=== PATIENT | female | born 1955 | race Caucasian/White ===

== ENCOUNTER 2017-07-28 09:47 | Outpatient (CLI) | payer OTHER | END 2017-07-28 09:48 | disposition home or self-care (01) | LOC: LAB 09:47 | PROVIDERS: ATTEND Internal Medicine | DX: E87.5 Hyperkalemia (principal) | CPT/HCPCS: 36415; 84132 ==

== ENCOUNTER 2017-10-08 09:46 | Outpatient (CLI) | payer OTHER ==
[~2017-10-08 09:46] MED LIST: GADOBUTROL 10 MMOL/10 ML VIAL ONE
[2017-10-08] MEDS ORDERED: GADOBUTROL 10 MMOL/10 ML VIAL IVP ONE (10:37)
--- NOTE | 2017-10-08 15:42 | MRI Report ---
EXAM: MRI BRAIN WITHOUT AND WITH CONTRAST EXAM DATE: 10/08/2017 10:44 AM. CLINICAL HISTORY: Lung cancer staging. History of brain metastasis and previous surgical resection. COMPARISON: 03/19/2017. TECHNIQUE: Multiplanar, multisequence T1-weighted and fluid-sensitive MR sequences of the brain were performed. Sequences optimized for routine evaluation. Other: None. IV Contrast: Without and with 10 mL Gadavist. FINDINGS: Again seen are findings of prior surgery for metastasis treatment. There is a small amount of gliosis and/or edema adjacent to the posteromedial right occipital lobe resection defect beneath the craniot al. At the anterior margin of the surgical site there is slightly more prominent amorphous nodular e nhancement. This is nonspecific and may represent treatment change versus residual/recurrent tumor. I n the white matter adjacent to this region there is increased T2 hyperintensity, for example on axial images 15 and 16 from series 701. No other evidence for new or enlarging intracranial enhancing or space occupying mass or a nodule. No acute hemorrhage, stroke or hydrocephalus. No additional white matter disease. Chronic inferior left maxillary retention cyst. The major arterial skull base flow voids are present. IMPRESSION: 1.Again seen are findings of surgery for tumor resection, at the anterior margin of the small resecti on defect there is increased minimal amorphous enhancement and T2 hyperintensity, tumor treatment ben nge versus disease progression/recurrence, additional follow-up suggested. 2. No other evidence for new or enlarging intracranial enhancing or space-occupying mass. [facility] Referring Provider Line: [phone] SITE ID: [id number]
== END 2017-10-08 09:47 | disposition home or self-care (01) ==
LOC: DI 09:46
PROVIDERS: ATTEND Specialist
DX: C79.31 Secondary malignant neoplasm of brain (principal); Z85.118 Personal history of other malignant neoplasm of bronchus and lung
CPT/HCPCS: 70553; A9585

== ENCOUNTER 2018-04-04 12:08 | Outpatient (CLI) | payer OTHER ==
[2018-04-04] MEDS ORDERED: GADOBUTROL 10 MMOL/10 ML VIAL IVP ONE (13:57)
--- NOTE | 2018-04-05 23:58 | MRI Report ---
EXAM: MRI BRAIN WITHOUT AND WITH CONTRAST EXAM DATE: 04/04/2018 02:57 PM. CLINICAL HISTORY: History of lung cancer with brain metastasis posttreatment, craniotomy. COMPARISON: Accompanying MRI cervical and thoracic spine. Prior MRI brain studies 10/08/2017, 017, 09/30/2016. TECHNIQUE: Multiplanar, multisequence T1-weighted and fluid-sensitive MR sequences of the brain were performed. Sequences optimized for routine evaluation. Other: None. IV Contrast: 10 cc Gadavist. Findings: Relevant images are indicated (image number, series number). Compared with MRI brain 10/08/2017: No interval acute or subacute ischemic change of the brain. No significant hemosiderin deposition in the brain. Postcontrast imaging demonstrates new linear enhancement abutting the right parieto-occipi gunnar sulcus (89, 401; 66, 402), measures 1.3 cm in length AP oblique, 0.4 cm in thickness sagittally, 9.1 mm transverse. This appears new in the interval. No other suspicious enhancing lesions in the bra in, meninges are seen. Small encephalomalacia, gliosis present right occipital lobe. Superimposed minimal scattered perivent ricular, subcortical white matter disease. There is partial empty sella. Midbrain negative. Craniocervical junction, limited evaluation upper ce rvical cord negative. Impressions: 1. No acute or subacute ischemic change. 2. New small linear enhancement abutting right parietal occipital sulcus treatment site as detailed, may represent interval scar formation although recurrent tumor not excluded, continue short interval follow-up imaging within 3 months to assess stability. Remaining brain demonstrates no suspicious enh ancement and is unremarkable as detailed. [facility] Referring Provider Line: [phone] SITE ID: [id number]
== END 2018-04-04 12:09 | disposition home or self-care (01) ==
LOC: DI 12:08
PROVIDERS: ATTEND Specialist
DX: C79.31 Secondary malignant neoplasm of brain (principal); Z85.118 Personal history of other malignant neoplasm of bronchus and lung
CPT/HCPCS: 70553

== ENCOUNTER 2018-04-06 06:51 | Day surgery (SDC) | payer OTHER ==
[2018-04-06] MEDS ORDERED: LACTATED RINGERS 1,000 ML IV ONE (07:43)
[2018-04-06] MEDS ORDERED: fentaNYL 250 MCG/5 ML VIAL IVP ONE (08:26)
[2018-04-06] MEDS ORDERED: MIDAZOLAM 2 MG/2 ML VIAL IVP ONE (08:26)
[2018-04-06 09:09] VITALS: BP 107/40
== END 2018-04-06 06:52 | disposition home or self-care (01) ==
LOC: SDS 06:51
PROVIDERS: ATTEND Surgery
PROC: 0DBK8ZX Excision of Ascending Colon, Via Natural or Artificial Opening Endoscopic, Diagnostic (ICD-10-PCS; principal; 2018-04-06 08:15)
DX: Z12.11 Encounter for screening for malignant neoplasm of colon (principal); D12.6 Benign neoplasm of colon, unspecified; K62.1 Rectal polyp; K64.8 Other hemorrhoids; Z86.010 Personal history of colon polyps; I10 Essential (primary) hypertension; E78.00 Pure hypercholesterolemia, unspecified
CPT/HCPCS: 45385; J3010; J7120; 88305

== ENCOUNTER 2018-07-28 16:26 | Outpatient (CLI) | payer OTHER ==
[2018-07-28] MEDS ORDERED: GADOBUTROL 10 MMOL/10 ML VIAL ONE (16:30)
[2018-07-28] MEDS ORDERED: GADOBUTROL 10 MMOL/10 ML VIAL IVP ONE (17:07)
--- NOTE | 2018-07-29 10:03 | MRI Report ---
Reason: SECONDARY MALIGNANY NEOPLASM OF BRAIN Procedure Date: 07/28/2018 Accession Number: [id number] / [id number] Procedure: MRI - Brain W/WO CPT Code: FULL RESULT: EXAM: MRI BRAIN WITHOUT AND WITH CONTRAST EXAM DATE: 07/28/2018 05:15 PM. CLINICAL HISTORY: 62-year-old female with history of lung cancer with brain metastases. Most immediate prior study from 04/04/2018 has demonstrated linear enhancement abutting the right parieto-occipital sulcus. COMPARISON: MR brain 04/04/2018 TECHNIQUE: Multiplanar, multisequence T1-weighted and fluid-sensitive MR sequences of the brain were performed. Sequences optimized for routine evaluation. Other: None. IV Contrast: 10 ML Gadavist. FINDINGS: Brain Volume: Normal for age. Parenchyma: The patient is again noted to be status post prior right parietal craniotomy and resection of the right parieto-occipital enhancing mass. Redemonstration of linear enhancement extending from the posterior right falx into the right parieto-occipital sulcus (series 1002 image 68, series 1001 image 78, decreased in thickness since the prior study. No new intracranial enhancement and no other abnormal intracranial enhancement suggestive of metastatic disease. Redemonstration right frontal development of venous anomaly. Redemonstration of posterior right parieto-occipital FLAIR signal abnormality which likely represents gliosis, similar to prior study (for example series 701 images 16 and 17). Scattered T2/FLAIR hyperintense subcortical, deep, and periventricular white matter lesions within cerebral hemispheres bilaterally. No evidence of acute intracranial hemorrhage. No evidence of acute or subacute infarct. No parenchymal foci susceptibility artifact. Ventricles/Cisterns: No hydrocephalus. No abnormal extra-axial fluid collection or hemorrhage. Orbits: Symmetric and unremarkable. Sella Turcica: The pituitary gland, cavernous sinuses, suprasellar cistern and optic chiasm are unremarkable. IAC: Symmetric and unremarkable. Vasculature: Normal signal flow void is seen in the major arterial structures at the skull base. The dural sinuses are patent and enhance normally. Sinuses: Mucus retention cyst/polyp left maxillary sinus. The remaining paranasal sinuses are clear. Bones: No focal pathologic appearing marrow signal changes. Other: None. IMPRESSION: 1. Compared to the prior MRI brain from 04/04/2018, redemonstration linear enhancement extending from the posterior right falx into the right parieto-occipital sulcus (series 1002 image 68, series 1001 image 78), decreased in thickness since the prior study. Given this, this is favored to represent evolving post-treatment change, although possibility of metastasis, including leptomeningeal metastasis given sulcal location, not entirely excluded. Continued surveillance recommended. 2. No new intracranial enhancement and no other abnormal intracranial enhancement suggestive of metastatic disease. Redemonstration right frontal development of venous anomaly. 3. Redemonstration of posterior right parieto-occipital FLAIR signal abnormality which likely represents gliosis, similar to prior study (for example series 701 images 16 and 17). 4. Scattered T2/FLAIR hyperintense subcortical, deep, and periventricular white matter lesions within cerebral hemispheres bilaterally. These are nonspecific, may represent sequela of chronic microangiopathy. [facility]
== END 2018-07-28 16:27 | disposition home or self-care (01) ==
LOC: DI 16:26
PROVIDERS: ATTEND Specialist
DX: C79.31 Secondary malignant neoplasm of brain (principal); Z85.118 Personal history of other malignant neoplasm of bronchus and lung
CPT/HCPCS: 70553; A9585

== ENCOUNTER 2019-02-08 08:53 | Outpatient (CLI) | payer OTHER ==
[2019-02-08] MEDS ORDERED: GADOBUTROL 10 MMOL/10 ML VIAL ONE (11:04)
[2019-02-08] MEDS ORDERED: GADOBUTROL 10 MMOL/10 ML VIAL IVP ONE (11:21)
--- NOTE | 2019-02-08 15:32 | MRI Report ---
Reason: SECONDARY MALIGNANT NEOPLASM OF BRAIN Procedure Date: 02/08/2019 Accession Number: [id number] / [id number] Procedure: MRI - Brain W/WO CPT Code: FULL RESULT: EXAM: MRI BRAIN WITHOUT AND WITH CONTRAST EXAM DATE: 02/08/2019 11:27 AM. CLINICAL HISTORY: Secondary malignant neoplasm of brain. Follow up lung cancer with brain metastases. Brain surgery 2017. COMPARISON: BRAIN W/WO 07/28/2018 4:27 PM BRAIN W/WO 09/30/2016 7:53 AM BRAIN W/WO 04/04/2018 12:45 PM. TECHNIQUE: Multiplanar, multisequence T1-weighted and fluid-sensitive MR sequences of the brain were performed. Sequences optimized for routine evaluation. Other: None. IV Contrast: 9.5 cc Gadavist. FINDINGS: Brain Volume: Normal for age. Parenchyma: Postoperative change is once again seen posteromedially at the junction of the occipital and inferior parietal lobes. There is progression of linear and lobular foci of parenchymal enhancement seen in the surgical bed. This involves the superior occipital lobe below the parieto-occipital fissure. Punctate focus of adjacent involvement of inferior parietal lobe above the level of the parieto-occipital fissure is likely present as well. Mild surrounding white matter T1 hypointense with T2/FLAIR hyperintense signal is seen likely with minimal progression. No new foci of abnormal parenchymal enhancement are appreciated. No restricted diffusion is seen to suggest acute ischemia. There are a few scattered punctate foci of T2/FLAIR bright white matter signal noted in the cerebral hemispheres, not an unexpected finding in a patient of age 63 years. Note is made of a developmental venous anomaly in the inferior right frontal operculum, unchanged. No surrounding parenchymal gliosis or hemorrhage is seen. Ventricles/Cisterns: No hydrocephalus. No abnormal extra-axial fluid collection or hemorrhage. Orbits: Symmetric and unremarkable. Sella Turcica: The pituitary gland, cavernous sinuses, suprasellar cistern and optic chiasm are unremarkable. IAC: Symmetric and unremarkable. Vasculature: Normal signal flow void is seen in the major arterial structures at the skull base. The dural sinuses are patent and enhance normally. The right transverse sinus and jugular bulb are dominant. Sinuses: No acute sinus disease. Note is made of mucous retention cyst inferiorly in the left maxillary antrum. Bones: No focal pathologic appearing marrow signal changes. Other: None. IMPRESSION: 1. Continued mild progression of lobular and linear enhancement within the surgical bed involving the superomedial right occipital lobe with probable punctate involvement of the adjacent inferior parietal lobe as well. Mild surrounding FLAIR bright white matter signal is seen, likely increased inferiorly. Progression would be unusual for posttreatment sequela in the absence of radiation therapy. If the patient did have focal radiation therapy, differential considerations would include postradiation change. Otherwise, localized tumor progression should be considered. 2. No new or additional foci of abnormal parenchymal enhancement are noted. [facility]
== END 2019-02-08 08:54 | disposition home or self-care (01) ==
LOC: DI 08:53
PROVIDERS: ATTEND Internal Medicine
DX: C79.31 Secondary malignant neoplasm of brain (principal)
CPT/HCPCS: 70553; A9585

== ENCOUNTER 2019-12-02 11:04 | Outpatient (CLI) | payer MEDICARE, OTHER ==
--- NOTE | 2019-12-08 18:20 | Mammography Report ---
Reason: ROUTINE MAMMO Procedure Date: 12/02/2019 Accession Number: [id number] / [id number] Procedure: MGN - Screening Mammo Dig Bilat CPT Code: Final Report FULL RESULT: EXAM: Screening Mammo Dig Bilat DATE: 12/02/2019 11:28 AM CLINICAL HISTORY: Routine screening. History of chemotherapy and radiation therapy for lung carcinoma diagnosed in 2012. TECHNIQUE: (B) - Bilateral CC and MLO views were obtained. COMPARISON: 08/27/2017, 08/27/2016, and 08/16/2015 PARENCHYMAL PATTERN: (A) - The breasts demonstrate scattered fibroglandular densities bilaterally. FINDINGS: No significant interval change. There are no suspicious masses, calcifications, or areas of distortion. Scattered benign-appearing calcifications are again appreciated and stable. IMPRESSION: Negative examination. BI-RADS category 1. RECOMMENDATION: (ANNUAL) - Recommend routine annual screening mammography. BI-RADS CATEGORY: (1) - Negative. STANDARD QUALIFYING STATEMENTS: 1. This examination was not reviewed with the aid of Computer-Aided Detection (CAD). 2. A negative or benign imaging report should not preclude biopsy if clinically suspicious findings are present. 3. Dense breasts may obscure an underlying neoplasm. 4. This examination was reviewed without the aid of 3D breast imaging (tomosynthesis).
== END 2019-12-02 11:05 | disposition home or self-care (01) ==
LOC: DI.N 11:04
DX: Z12.31 Encounter for screening mammogram for malignant neoplasm of breast (principal)
CPT/HCPCS: 77067

== ENCOUNTER 2020-05-18 09:31 | Outpatient (CLI) | payer MEDICARE, OTHER ==
[2020-05-18] MEDS ORDERED: GADOBUTROL 10 MMOL/10 ML VIAL IVP ONE (10:59)
--- NOTE | 2020-05-18 13:24 | MRI Report ---
PROCEDURE: Brain W/WO INDICATIONS: HEADACHE CONTRAST: IV CONTRAST: Gadavist ml: 10 TECHNIQUE: Noncontrast axial T1 spin echo, axial T2 fast spin echo, sagittal and axial FLAIR, coronal T2 fast sp in echo, axial gradient echo, axial diffusion and ADC through the brain. After the administration of contrast, axial and coronal T1 spin echo with fat saturation through the brain. COMPARISON: Brain MRI examinations, for/0 02/20, 07/30/2019, 02/08/2019, 07/28/2018 FINDINGS: Image quality: Diagnostic, with note made of motion artifact. CSF spaces: Basal cisterns are patent. No extra-axial fluid collections. Ventricles are normal in size and shape. Brain: Encephalomalacia and hemosiderin deposition can be seen within the right parietal-occipital r egion. Areas of abnormal enhancement can be seen within this region, as on series 1002 images 55 thr ough 69. The extent of this abnormal enhancement measures 2.1 cm craniocaudal by 8 mm AP by 9 mm rothman sversely. No midline shift. No intracranial bleeds or masses. No abnormal intracranial enhancement. There is cerebral volume loss for age. There is periventricular white matter chronic small vessel ischemic c hange. The brainstem appears normal. Diffusion-weighted images demonstrate no acute ischemic insult s. No chronic ischemic insults. Normal intravascular flow voids are present. Skull and face: Remote left craniotomy change can be seen. Calvarial marrow is normal in signal. Or bits appear normal. Sinuses: There is a mucous retention cyst seen within the inferior left maxillary sinus. Mild fluid is seen within the right mastoid air cells. Sinuses and mastoids otherwise appear clear. IMPRESSION: Abnormal enhancement and signal within the right parietal occipital region, which is con sistent with metastatic disease. This has slowly progressed over time. Reviewed by: Blair Pleitez MD on 05/18/2020 12:23 PM [facility] Approved by: Blair Pleitez MD on 05/18/2020 12:23 PM [facility] Station ID: [id number]
== END 2020-05-18 09:32 | disposition home or self-care (01) ==
LOC: DI 09:31
PROVIDERS: ATTEND Internal Medicine Hematology & Oncology
DX: G93.89 Other specified disorders of brain (principal)
CPT/HCPCS: 70553; A9585

== ENCOUNTER 2020-08-15 12:01 | Outpatient (CLI) | payer MEDICARE, OTHER ==
[2020-08-15 12:27] LABS: BASOPHILS # (AUTO) 0.1 10^3/uL (0.0-0.1); EOSINOPHILS # (AUTO) 0.1 10^3/uL (0.0-0.7); EOSINOPHILS % (AUTO) 1.2 %; HGB - HEMOGLOBIN 14.4 g/dL (12.0-16.0); LYMPHOCYTES # (AUTO) 2.1 10^3/uL (1.5-3.5); LYMPHOCYTES % (AUTO) 26.9 %; MEAN CORPUSCULAR HEMOGLOBIN 28.1 pg (27.0-31.0); MEAN CORPUSCULAR HGB CONC 31.2 g/dL (32.0-36.0); MEAN CORPUSCULAR VOLUME 90.1 fL (81.0-99.0); MEAN PLATELET VOLUME 9.7 fL (7.9-10.8); MONOCYTES # (AUTO) 0.6 10^3/uL (0.0-1.0); MONOCYTES % (AUTO) 7.2 %; NEUTROPHILS # (AUTO) 4.9 10^3/uL (1.5-6.6); NEUTROPHILS % (AUTO) 63.3 %; PLT - PLATELET COUNT 165 10^3/uL (130-450); RED BLOOD COUNT 5.13 10^6/uL (4.20-5.40); RED CELL DISTRIBUTION WIDTH 14.3 % (12.0-15.0); WHITE BLOOD COUNT 7.7 x10^3/uL (4.8-10.8)
[2020-08-15 12:40] LABS: ALBUMIN 4.2 g/dL (3.2-5.5); ALBUMIN/GLOBULIN RATIO 1.4 (1.0-2.2); BILIRUBIN,TOTAL 0.8 mg/dL (0.2-1.0); CALCIUM 9.3 mg/dL (8.5-10.3); CREATININE 1.1 mg/dL (0.4-1.0); TOTAL PROTEIN 7.2 g/dL (6.7-8.2)
[2020-08-15] MEDS ORDERED: GADOBUTROL 10 MMOL/10 ML VIAL IVP ONE (13:38)
[2020-08-15] MEDS ORDERED: GADOBUTROL 10 MMOL/10 ML VIAL ONE (13:41)
--- NOTE | 2020-08-15 14:48 | MRI Report ---
PROCEDURE: Brain W/WO INDICATIONS: SECONDARY MALIGNANT NEOPLASM OF BRAIN CONTRAST: IV CONTRAST: Gadavist ml: 10 TECHNIQUE: Noncontrast axial T1 spin echo, axial T2 fast spin echo, sagittal and axial FLAIR, coronal T2 fast sp in echo, axial gradient echo, axial diffusion and ADC through the brain. After the administration of contrast, axial and coronal T1 spin echo with fat saturation through the brain. COMPARISON: Brain MRI examinations 05/18/2020 and 02/05/2020. FINDINGS: Image quality: Diagnostic, with note made of motion artifact. CSF spaces: Basal cisterns are patent. No extra-axial fluid collections. Ventricles are normal in size and shape. Brain: Within the right posterior parietal occipital region, there are nodular masses seen, which sp an at least 2.4 cm craniocaudally. There is surrounding vasogenic edema seen. To the limits of this s tudy, no additional masses or areas of abnormal enhancement can be seen. Compared to the 05/18/2020 ex amination, this mass is mildly more prominent. No midline shift. No intracranial bleeds. There is cerebral volume loss for age. There is perivent ricular white matter chronic small vessel ischemic change. The brainstem appears normal. Diffusion- weighted images demonstrate no acute ischemic insults. No chronic ischemic insults. Normal intravas cular flow voids are present. Skull and face: Calvarial marrow is normal in signal. Orbits appear normal. Sinuses: Sinuses and mastoids appear clear. IMPRESSION: Mildly increased prominence of the right parietal occipital enhancing lobular mass, whic h is consistent with progression of mild interval metastatic disease. Reviewed by: Blair Pleitez MD on 08/15/2020 1:46 PM [facility] Approved by: Blair Pleitez MD on 08/15/2020 1:46 PM [facility] Station ID: [id number]
== END 2020-08-15 12:02 | disposition home or self-care (01) ==
LOC: LAB 12:01
PROVIDERS: ATTEND Internal Medicine
DX: C79.31 Secondary malignant neoplasm of brain (principal); C34.90 Malignant neoplasm of unspecified part of unspecified bronchus or lung
CPT/HCPCS: 36415; 70553; 80053; 85025; A9585

== ENCOUNTER 2020-11-22 08:58 | Outpatient (CLI) | payer MEDICARE, OTHER ==
[2020-11-22] MEDS ORDERED: GADOBUTROL 15 MMOL/15 ML VIAL IVP ONE (10:03)
--- NOTE | 2020-11-22 11:22 | MRI Report ---
PROCEDURE: Brain W/WO INDICATIONS: LUNG CA W/BRAIN METS CONTRAST: IV CONTRAST: Gadavist ml: 12.5 TECHNIQUE: Noncontrast axial T1 spin echo, axial T2 fast spin echo, sagittal and axial FLAIR, coronal T2 fast sp in echo, axial gradient echo, axial diffusion and ADC through the brain. After the administration of contrast, axial and coronal T1 spin echo with fat saturation through the brain. COMPARISON: 08/15/2020, 05/18/2020, and 02/05/2020. FINDINGS: Image quality: Excellent. CSF spaces: Basal cisterns are patent. No extra-axial fluid collections. Ventricles are normal in size and shape. Brain: Within the right parieto-occipital region, there is again seen abnormal lobulated enhancing m aterial. This measures up to 1.8 cm cm craniocaudal. Mild surrounding edema can be seen. When compare d to the 08/15/2020 examination, the amount of enhancing material is slightly decreased in prominence . No midline shift. There is cerebral volume loss for age. There is periventricular white matter paper finisher parker small vessel ischemic change. The brainstem appears normal. Diffusion-weighted images demonstra te no acute ischemic insults. No chronic ischemic insults. Normal intravascular flow voids are pres ent. Skull and face: Calvarial marrow is normal in signal. Orbits appear normal. Sinuses: Sinuses and mastoids appear clear. IMPRESSION: Slight interval improvement in the amount of enhancing material within the right parieto-occipital re gion. Please correlate with interval treatment changes. No new masses or areas of abnormal enhancement can be seen. Reviewed by: Blair Pleitez MD on 11/22/2020 10:20 AM [facility] Approved by: Blair Pleitez MD on 11/22/2020 10:20 AM [facility] Station ID: [id number]
== END 2020-11-22 08:59 | disposition home or self-care (01) ==
LOC: DI 08:58
PROVIDERS: ATTEND Internal Medicine
DX: C34.90 Malignant neoplasm of unspecified part of unspecified bronchus or lung (principal); C79.31 Secondary malignant neoplasm of brain
CPT/HCPCS: 70553; A9585

== ENCOUNTER 2021-08-02 12:55 | Emergency (ER) | payer MEDICARE, OTHER ==
--- NOTE | 2021-08-02 14:01 | ED Physician Documentation ---
History of Present Illness - Stated complaint Stated Complaint: LT LEG SWELLING - Chief complaint Chief Complaint: Ext Problem - Additonal information Additional information: 65-year-old female presents the emergency department for evaluation 1 week left lower extremity edema, pain and mild erythema. She does have a history of previous DVT in 2013 when she was actively being treated for cancer. She does have a history of lung cancer with metastasis to the brain but is currently in remission. Followed by survey and mapping technician oncologist Dr. Casey. Patient is not currently anticoagulated. She denies chest pain. At baseline she does have dys pnea secondary to scarring within her lung tissue Review of Systems Constitutional: reports: Reviewed and negative Eyes: reports: Reviewed and negative Ears: reports: Reviewed and negative Cardiac: reports: Other (Left lower extremity edema) Respiratory: reports: Reviewed and negative GI: reports: Reviewed and negative : reports: Reviewed and negative Skin: reports: Reviewed and negative PD PAST MEDICAL HISTORY - Past Medical History Cardiovascular: Hypertension, High cholesterol Respiratory: Asthma - Past Surgical History Past Surgical History: No - Present Medications Home Medications: Ambulatory Orders Medication Instructions Recorded Confirmed Atenolol 100 mg PO DAILY 12/22/13 08/02/21 Simvastatin [Zocor] 10 mg PO DAILY 12/22/13 08/02/21 hydroCHLOROthiazide [Hydrodiuril] 25 mg PO DAILY 12/22/13 08/02/21 Aspirin [Aspir 81] 81 mg PO DAILY 05/11/14 08/02/21 Potassium Chloride [K-Dur] 30 meq PO DAILY 10/11/15 08/02/21 Rivaroxaban [Xarelto] 15 mg PO BID 21 Days #42 tablet 08/02/21 Rivaroxaban [Xarelto] 20 mg PO DAILY #30 tablet 08/02/21 - Allergies Allergies/Adverse Reactions: Allergies Allergy/AdvReac Type Severity Reaction Status Date / Time latex Allergy Itching Verified 08/02/21 13:07 - Social History Does the pt smoke?: No Smoking Status: Never smoker Does the pt drink ETOH?: No Does the pt have substance abuse?: No - POLST Patient has POLST: No PD ED PE NORMAL - General General: Alert and oriented X 3 - HEENT HEENT: PERRL - Cardiac Cardiac: RRR, No murmur - Respiratory Respiratory: Clear bilaterally - Abdomen Abdomen: Normal bowel sounds, Soft, Non tender, Non distended - Derm Derm: Normal color, Warm and dry, No rash - Extremities Extremities: No: No edema (2+ swelling with edema left lower extremity from the foot to the knee. Mild erythema. Positive posterior calf pain tenderness. 2+ DP pulse.) - Neuro Neuro: Alert and oriented X 3, audit spec 2-12 intact Eye Opening: Spontaneous Motor: Obeys Commands Verbal: Oriented GCS Score: 15 Results - Vitals Vitals: Vital Signs - 24 hr 08/02/21 08/02/21 13:02 13:17 Temperature 36.5 C 36.5 C Heart Rate 71 71 Respiratory 20 20 Rate Blood Pressure 149/75 H 149/75 H O2 Saturation 98 98 Oxygen O2 Source Room air - Labs Labs: Laboratory Tests 08/02/21 08/02/21 14:21 14:21 WBC 6.2 RBC 4.69 Hgb 13.3 Hct 42.2 MCV 90.0 MCH 28.4 MCHC 31.5 L RDW 14.2 Plt Count 184 MPV 9.6 Neut # (Auto) 4.6 Lymph # (Auto) 1.1 L [place] # (Auto) 0.3 Eos # (Auto) 0.1 Baso # (Auto) 0.0 Absolute Nucleated RBC 0.00 Nucleated RBC % 0.0 Sodium 141 Potassium 3.5 Chloride 100 L Carbon Dioxide 30 Anion Gap 11.0 BUN 20 Creatinine 1.1 H Estimated GFR (MDRD) 50 L Glucose 123 H Calcium 9.4 Total Bilirubin 1.0 AST 21 ALT 16 Alkaline Phosphatase 65 Total Protein 7.2 Albumin 4.3 Globulin 2.9 Albumin/Globulin Ratio 1.5 Lipase 25 - Rads (name of study) US DVT Radiology: See rad report, Other (Per generation technologist there is complete occlusion of the proximal mid and distal femoral vein. The popliteal vein is partially occluded as well as partial occlusion of the common femoral vein. No thrombus seen within the iliac.) PD MEDICAL DECISION MAKING - ED course Complexity details: reviewed results, re-evaluated patient, d/w patient, d/w it security consultant (Dr. Charleen casey) ED course: 65-year-old female presents emergency department for evaluation of 1 week left lower extremity swelling and erythema. She does have a history of previous DVT in this left leg about 7 years ago when undergoing active treatment for cancer. She is scheduled to follow-up later this month with Dr. Casey but to date they have just been doing surveillance with no active treatment. Today's ultrasound does show fairly significant clot burden within the femoral, Popliteal as well as common femoral vein. She does have a creatinine clearance of 50. I discussed with her oncologist whether he would prefer a DOAC versus Lovenox but he feels at this time that a DOAC is appropriate given the patient's history as long as her creatinine clearance is appropriate. Plan and findings have been discussed with the patient. Emergent return precautions were discussed for hematuria melena, sudden severe headache any concerns of bleeding or any trauma and falls. Departure - Departure Disposition: Home, Self Care Clinical Impression: Deep vein thrombosis of left lower extremity Qualifiers: Affected thrombotic vein of extremity: femoral Chronicity: acute Qualified Code(s): I82.412 - Acute embolism and thrombosis of left femoral vein Condition: Stable Record reviewed to determine appropriate education?: Yes Instructions: Rivaroxaban oral tablets, DVT Tx Prescriptions: Rivaroxaban [Xarelto] 15 mg PO BID 21 Days #42 tablet Rivaroxaban [Xarelto] 20 mg PO DAILY #30 tablet Comments: You were seen in the emergency department today for swelling in the left lower leg. Unfortunately the ultrasound does confirm that you have deep vein thrombosis within your iliac, popliteal as well as femoral veins. We are going to start you on a medication called Xarelto that will help prevent new clot from forming. Initially you are to take 15 mg twice daily with food for 21 days. Once that prescription is complete, then begin 20 mg once daily with food. Your prescription has been sent to the [facility] in [place] Continue to follow-up with Dr. Casey. You can continue to obtain your labs and CAT scans/imaging as already ordered. Because the medication that were putting you on prevent you from forming clots you must be careful with any trips and falls. If you strike your head you must come to the ER. If you have a sudden severe headache, any black or bloody stools, any blood in your urine, feel faint or dizzy then you are to return immediately to the ER for a second evaluation.
[2021-08-02 14:33] LABS: BASOPHILS % (AUTO) 0.6 %; EOSINOPHILS # (AUTO) 0.1 10^3/uL (0.0-0.7); EOSINOPHILS % (AUTO) 1.4 %; HCT - HEMATOCRIT 42.2 % (37.0-47.0); HGB - HEMOGLOBIN 13.3 g/dL (12.0-16.0); LYMPHOCYTES # (AUTO) 1.1 10^3/uL (1.5-3.5); LYMPHOCYTES % (AUTO) 18.3 %; MEAN CORPUSCULAR HEMOGLOBIN 28.4 pg (27.0-31.0); MEAN CORPUSCULAR HGB CONC 31.5 g/dL (32.0-36.0); MEAN PLATELET VOLUME 9.6 fL (7.9-10.8); MONOCYTES # (AUTO) 0.3 10^3/uL (0.0-1.0); MONOCYTES % (AUTO) 5.4 %; NEUTROPHILS # (AUTO) 4.6 10^3/uL (1.5-6.6); NEUTROPHILS % (AUTO) 73.8 %; PLT - PLATELET COUNT 184 10^3/uL (130-450); RED BLOOD COUNT 4.69 10^6/uL (4.20-5.40); RED CELL DISTRIBUTION WIDTH 14.2 % (12.0-15.0); WHITE BLOOD COUNT 6.2 x10^3/uL (4.8-10.8)
[2021-08-02 14:38] LABS: ALBUMIN 4.3 g/dL (3.2-5.5); ALBUMIN/GLOBULIN RATIO 1.5 (1.0-2.2); CALCIUM 9.4 mg/dL (8.5-10.3); CREATININE 1.1 mg/dL (0.4-1.0); POTASSIUM 3.5 mmol/L (3.5-5.0); TOTAL PROTEIN 7.2 g/dL (6.7-8.2)
[2021-08-02] MEDS ORDERED: RIVAROXABAN 15 MG TABLET PO STA (14:54)
[2021-08-02 15:19] VITALS: BP 140/72
--- NOTE | 2021-08-02 16:39 | Ultrasound Report ---
PROCEDURE: Duplex Ext Veins Left INDICATIONS: left leg swelling; hx of cancer and dvt TECHNIQUE: Real-time imaging, as well as color and pulse Doppler interrogation, were performed of the lower extr emity deep veins from the inguinal ligament to the popliteal fossa. COMPARISON: None. FINDINGS: Occlusive thrombus is noted in the left superficial femoral vein and popliteal vein. IMPRESSION: Abnormal study demonstrating deep vein thrombosis involving the left superficial femoral vein and lef t popliteal vein. Reviewed by: Britni Moeller MD, PhD on 08/02/2021 4:38 PM PDT Approved by: Britni Moeller MD, PhD on 08/02/2021 4:38 PM PDT Station ID: [id number]
== END 2021-08-02 15:19 | disposition home or self-care (01) ==
LOC: ED 12:55
DX: I82.412 Acute embolism and thrombosis of left femoral vein (principal); I82.432 Acute embolism and thrombosis of left popliteal vein
CPT/HCPCS: 36415; 80053; 83690; 85025; 93971; 99284; A9270

== ENCOUNTER 2021-08-23 10:18 | Outpatient (CLI) | payer MEDICARE, OTHER ==
[2021-08-23] MEDS ORDERED: GADOBUTROL 15 MMOL/15 ML VIAL ONE (10:29)
--- NOTE | 2021-08-23 14:38 | MRI Report ---
PROCEDURE: MRI brain with and without contrast INDICATIONS: 65-year-old female with history of lung cancer with brain metastasis. CONTRAST: IV CONTRAST: Gadavist ml: 10 TECHNIQUE: Noncontrast axial T1 spin echo, axial T2 fast spin echo, sagittal and axial FLAIR, campoverde l T2 fast spin echo, axial gradient echo, axial diffusion and ADC through the brain. After the admin istration of contrast, axial and coronal T1 spin echo with fat saturation through the brain. COMPARISON: 11/22/2020, 08/15/2020 FINDINGS: Cerebrum, Cerebellum and Brainstem: There is been slight interval increase in focal lobular enhanceme nt and surrounding vasogenic edema in the right occipital lobe, consistent with progression of diseas e. Overall enhancement is 2.2 x 1.2 cm, and the intradural foci of internal old blood products is als o increased from the prior. No new foci of enhancement. There is mild atrophy and multifocal chronic ischemic change present. Inc idental note is made of a small tangle of vessels in the periventricular right frontal white matter a ssociated with a draining transcortical rubbish collector vein, consistent with a small developmental venous anomaly. The diffusion sequence is normal without evidence of acute infarct. Basal cisterns and fora men magnum contain appropriate anatomy and vascular flow voids. No evidence of dural or leptomeninge al thickening. Ventricles: Appropriate in size and position. No hydrocephalus. Skull Base: The bony sella, pituitary gland and infundibulum are unremarkable. Clivus and craniover tebral relationships are appropriate. Visualized portions of the seventh and eighth cranial nerve co mplexes and internal auditory canals are within normal limits. Scalp and Calvarium: Small right posterior parietal craniotomy defect noted, stable from the prior Paranasal Sinuses: Visualized sinuses are clear. Mastoids: Unremarkable as visualized. No mastoid effusion present. Orbits: The orbits, globes and ocular muscles are unremarkable. IMPRESSION: 1. Increasing right occipital lobular enhancement, surrounding vasogenic edema, and internal old blo od products consistent with progression of metastatic disease. No new lesion. 2. Stable right frontal developmental venous anomaly 3. Atrophy and mild white matter chronic ischemic change Reviewed by: Kt Cobb MD on 08/23/2021 1:36 PM AKDT Approved by: Kt Cobb MD on 08/23/2021 1:36 PM AKDT Station ID: [id number]
[2021-08-23] MEDS ORDERED: GADOBUTROL 15 MMOL/15 ML VIAL IVP ONE (16:02)
== END 2021-08-23 10:19 | disposition home or self-care (01) ==
LOC: DI 10:18
PROVIDERS: ATTEND Internal Medicine
DX: C79.31 Secondary malignant neoplasm of brain (principal); G31.9 Degenerative disease of nervous system, unspecified
CPT/HCPCS: 70553; A9585

== ENCOUNTER 2021-11-06 09:22 | Outpatient (CLI) | payer MEDICARE, OTHER ==
[2021-11-06] MEDS ORDERED: GADOBUTROL 10 MMOL/10 ML VIAL ONE (09:50)
[2021-11-06 10:04] LABS: CREATININE 1.2 mg/dL (0.4-1.0)
[2021-11-06] MEDS ORDERED: GADOBUTROL 10 MMOL/10 ML VIAL IVP ONE (16:31)
--- NOTE | 2021-11-06 16:59 | MRI Report ---
PROCEDURE: Brain W/WO INDICATIONS: BRAIN AND BREAST CA, EDEMA, LEFT DVT CONTRAST: IV CONTRAST: Gadavist ml: 10 TECHNIQUE: Noncontrast axial T1 spin echo, axial T2 fast spin echo, sagittal and axial FLAIR, coronal T2 fast sp in echo, axial gradient echo, axial diffusion and ADC through the brain. After the administration of contrast, axial and coronal T1 spin echo with fat saturation through the brain. COMPARISON: None 08/23/2021 and 11/22/2020.. FINDINGS: Image quality: Excellent. CSF spaces: Basal cisterns are patent. No extra-axial fluid collections. Ventricles are normal in size and shape. Brain: No midline shift. Heterogeneous postcontrast enhancement involving the left occipital lobe is stable compared to 08/23/2021 and slightly increased in size compared to 11/22/2020. No new areas of abnormal cranial enhancement. Vasogenic edema surrounding the right occipital lobe enhancing lesion i s stable compared to 08/23/2021. There is cerebral volume loss for age. There is periventricular whi te matter chronic small vessel ischemic change. The brainstem appears normal. Diffusion-weighted im ages demonstrate no acute ischemic insults. No chronic ischemic insults. Normal intravascular flow voids are present. Small right frontal developmental venous anomaly is stable compared to prior exams . Dural sinuses demonstrate normal postcontrast enhancement. Skull and face: Calvarial marrow is normal in signal. Orbits appear normal. Sinuses: Left maxillary sinus mucous retention cyst versus polyp. Mastoids appear clear. IMPRESSION: 1. Stable examination compared to 08/23/2021. 2. Heterogeneously enhancing metastatic lesion with surrounding vasogenic edema involving the right o ccipital lobe is stable in size and contour compared to 08/23/2021. 3. No new abnormal intracranial mass or new suspicious postcontrast enhancement. Reviewed by: Britni Moeller MD, PhD on 11/06/2021 4:57 PM PST Approved by: Britni Moeller MD, PhD on 11/06/2021 4:57 PM PST Station ID: [id number]
== END 2021-11-06 09:23 | disposition home or self-care (01) ==
LOC: LAB 09:22
PROVIDERS: ATTEND Internal Medicine
DX: C79.31 Secondary malignant neoplasm of brain (principal); C79.81 Secondary malignant neoplasm of breast; I82.412 Acute embolism and thrombosis of left femoral vein; I82.432 Acute embolism and thrombosis of left popliteal vein; R60.0 Localized edema
CPT/HCPCS: 36415; 70553; 82565; A9585

== ENCOUNTER 2021-11-13 09:41 | Outpatient (CLI) | payer MEDICARE, OTHER ==
--- NOTE | 2021-11-13 18:57 | Ultrasound Report ---
PROCEDURE: Duplex Ext Veins Bilateral INDICATIONS: KATHRYN WATKINS TECHNIQUE: Real-time imaging, as well as color and pulse Doppler interrogation, were performed of the deep veins of both legs from the inguinal ligament to the popliteal fossa. COMPARISON: None FINDINGS: There is no right lower extremity DVT. There is chronic DVT in the left lower extremity over a long expanse. There is chronic partial occlus ion of the common femoral and proximal, mid, and distal superficial femoral vein. The popliteal vein is occluded. This is possibly acute on chronic. Left calf veins not well seen. IMPRESSION: 1. No evidence of right lower extremity DVT. 2. Extensive chronic DVT involving the left lower extremity. There is chronic nonocclusive clot throu ghout the thigh and common femoral vein. The popliteal vein is occluded. This may potentially represe nt acute on chronic clot. Reviewed by: Rajan Lee MD on 11/13/2021 6:56 PM PST Approved by: Rajan Lee MD on 11/13/2021 6:56 PM PST Station ID: [id number]
== END 2021-11-13 09:42 | disposition home or self-care (01) ==
LOC: DI 09:41
PROVIDERS: ATTEND Internal Medicine
DX: C34.90 Malignant neoplasm of unspecified part of unspecified bronchus or lung (principal); C79.31 Secondary malignant neoplasm of brain; I82.512 Chronic embolism and thrombosis of left femoral vein; I82.532 Chronic embolism and thrombosis of left popliteal vein
CPT/HCPCS: 93970

== ENCOUNTER 2022-01-01 11:20 | Outpatient (CLI) | payer MEDICARE, OTHER ==
--- NOTE | 2022-01-02 12:08 | Mammography Report ---
BILATERAL DIGITAL SCREENING MAMMOGRAM 3D/2D: 01/01/2022 CLINICAL: Routine screening. Comparison is made to exams dated: 12/02/2019 mammogram - [facility], 08/27/2017 ma mmogram, 08/27/2016 mammogram, and 08/16/2015 mammogram - [facility]. There are scatt ered fibroglandular elements in both breasts. No significant masses, calcifications, or other findings are seen in either breast. There has been no significant interval change. IMPRESSION: NEGATIVE There is no mammographic evidence of malignancy. A 1 year screening mammogram is recommended. This exam was interpreted at Station ID: [id number]. NOTE: For mammograms, a report in lay terms will be sent to the patient. Approximately 15% of breast malignancies will not be visualized mammographically. In the management of a palpable breast mass, a negative mammogram must not discourage biopsy of a clinically suspicious lesion. Electronically Signed By: Mike Rich M.D. [facility] [place]:01/01/2022 13:27:18 ACR BI-RADS Category 1: Negative 3341F PARENCHYMAL PATTERN: (A) - The breast(s) demonstrate(s) scattered fibroglandular densities. BI-RADS CATEGORY: (1) - 1 RECOMMENDATION: (ANNUAL) - Recommend routine annual screening mammography. [id number] 1 year screening LATERALITY: (B)
== END 2022-01-01 11:21 | disposition home or self-care (01) ==
LOC: DI.N 11:20
PROVIDERS: ATTEND Internal Medicine
DX: Z12.31 Encounter for screening mammogram for malignant neoplasm of breast (principal)

== ENCOUNTER 2022-02-18 09:57 | Outpatient (CLI) | payer MEDICARE, OTHER ==
[2022-02-18] MEDS ORDERED: GADOBUTROL 15 MMOL/15 ML VIAL ONE (10:35)
--- NOTE | 2022-02-18 12:06 | MRI Report ---
PROCEDURE: Brain W/WO INDICATIONS: BREAST CA CONTRAST: IV CONTRAST: Gadavist ml: 11 TECHNIQUE: Noncontrast axial T1 spin echo, axial T2 fast spin echo, sagittal and axial FLAIR, coronal T2 fast sp in echo, axial gradient echo, axial diffusion and ADC through the brain. After the administration of contrast, axial and coronal T1 spin echo with fat saturation through the brain. COMPARISON: 11/06/2021 and 08/23/2021. FINDINGS: Image quality: Excellent. CSF spaces: Basal cisterns are patent. No extra-axial fluid collections. Ventricles are normal in size and shape. Brain: There is a 4.2 x 3.1 x 3.5 cm heterogeneously enhancing mass in the medial aspect of the righ t occipital lobe which has increased in size compared to 11/06/2021. There is increased T1 signal and s usceptibility artifact within the right occipital mass compatible with intratumoral hemorrhage which has developed in the interval since the prior exam.. Vasogenic edema is identified in the right occip ital and temporal lobes which is causing mild local mass effect is increased in size and distribution compared to 11/06/2021. No midline shift. The brainstem appears normal. Diffusion-weighted images d [facility] no acute ischemic insults. No chronic ischemic insults. Normal intravascular flow voids are present. Dural sinuses demonstrate normal postcontrast enhancement. Skull and face: Calvarial marrow is normal in signal. Orbits appear normal. Sinuses: Sinuses and mastoids appear clear. IMPRESSION: 1. 4.2 x 3.1 x 3.5 cm heterogeneously enhancing mass in the right occipital lobe is increased in size compared to 11/06/2021. Vasogenic edema surrounding the lesion has increased in size and distribution compared to prior examination. 2. No new abnormal intracranial mass or suspicious intracranial postcontrast enhancement. Reviewed by: Britni Moeller MD, PhD on 02/18/2022 12:05 PM PDT Approved by: Britni Moeller MD, PhD on 02/18/2022 12:05 PM PDT Station ID: [id number]
[2022-02-18] MEDS ORDERED: GADOBUTROL 15 MMOL/15 ML VIAL IVP ONE (14:34)
== END 2022-02-18 09:58 | disposition home or self-care (01) ==
LOC: DI 09:57
PROVIDERS: ATTEND Internal Medicine
DX: C34.90 Malignant neoplasm of unspecified part of unspecified bronchus or lung (principal); C79.31 Secondary malignant neoplasm of brain; C79.81 Secondary malignant neoplasm of breast
CPT/HCPCS: 70553; A9585

== ENCOUNTER 2022-04-29 09:38 | Outpatient (CLI) | payer MEDICARE, OTHER ==
--- NOTE | 2022-04-29 10:26 | SLEEP CARE CONSULTATION ---
Information from patient questionnaire entered by Rubio Miller MA. I have reviewed and concur with the information entered by Rubio Miller MA. This document represents the service I personally performed and the decisions made by me, Mary Crook MD, [facility]. History of Present Illness Service Date and Time: 04/29/2022 0938 Reason for Visit: New patient (ONSET 03/24, NO PRIORS, ) Chief Complaint: reports: Insomnia, Snoring, Observed pauses in breathing, Fatigue, Frequent awakenings at night, Other Date of Onset: 8 MONTHS Usual bedtime: 1030 PM Time it takes to fall asleep: 15 MINUTES Snores at night: Yes (ONLY SOMETIMES) Observed to quit breathing while asleep: Yes (HOSPITAL) Sleeps alone due to snoring: No Number of times waking at night: 3-4 Reasons for waking at night: reports: Pain, Bathroom Toss, Turn, or Twitch while sleeping: Yes Recalls having dreams: No Feels refreshed in the morning: No Morning headache: Yes Sleepy or fatigued during the day: Yes Ever fallen asleep while driving: No Takes day naps: Yes Dreams during day naps: No Prior sleep studies: No Additional HPI information: I have the pleasure of seeing Mrs. Sunshine today regarding the possibility of her having obstructive sleep apnea. As you know, she is a 66-year-old lady who complains of frequent awakenings. She was recently hospitalized and was observed to stop breathing while asleep. She snores loudly at home according to her who has obstructive sleep apnea-hypopnea and uses a CPAP. The patient tells me that she normally goes to bed around 10 pm, and it takes her approximately 15 minutes to fall asleep. She can recall waking up on the average of 3 - 5 times during the night. Most of the time she wakes up because of having to use the bathroom and pain. She has never awakened because of her own snoring, choking, or having to gasp for air. There is a lot of tossing and turning in her sleep. She has somniloquy (sleep talking) but not somnambulism (sleep walking). In the morning she usually gets up out of the bed around 5:30 a.m. not feeling refreshed nor rested. During the day she complains of feeling sleepy and fatigued. Her score on [place] Sleepiness Scale is 13 out of 24. She never has fallen asleep while driving nor has had any accident due to sleepiness. She does not drive at the present. She usually takes a hour-nap during the day. She reports having impaired concentration during the day. - Parasomnia Symptoms Ever been unable to move upon waking from sleep: No Walks in sleep: No Talks in sleep: Yes Ever felt weak in the knees when startled or emotional: No Bothered by creepy, crawly, restless sensations in legs: Yes Problems with memory or concentration: Yes Subjective Initial [place] Sleepiness Scale score: 13 (04/29/2022) Past Medical History Past Medical History: reports: Hypertension (lung cancer with brain mets; s/p craniotomy x 2), Arthritis, Anxiety, Depression, Other (LUNG CANCER) Social History The patient's occupation is a RE. Patient is and lives in [place]. Have you smoked in the past 12 months: Yes Cigarettes per day (20/pack): 20 Years of smokin Quit date: 2012 Smoking Pack Years: 40.0 Alcohol use: No Caffeine use: Yes Caffeine amount and frequency: 2 X DAILY Family History Family history of sleep disordered breathing: No Allergies and Home Medications Known drug allergies: Yes (LATEX) Drug allergies reviewed: Yes Home medication list reviewed: Yes Allergy and home medication list: Allergies latex Allergy (Verified 08/02/21 13:07) Itching Review of Systems Cardiovascular: reports: high blood pressure, leg or foot swelling Respiratory: reports: shortness of breath Gastrointestinal: denies: heartburn, difficulty swallowing, nausea, vomitting, diarrhea, abdominal pain, other Urinary: reports: incontinence, frequency Neurological: reports: headaches, head trauma, gait or balance problems Psychiatric: reports: anxiety, depression Ear/Nose/Throat: reports: sinus problems, wisdom teeth removed Endocrine: reports: sluggishness, too hot or cold, unexplained weakness Musculoskeletal: reports: joint pain, joint swelling, mobility problems Immunologic: reports: sneezing Physical Exam Vital signs obtained and entered by: Zachery MILLER CMA [facility] Blood Pressure: 153/84 (RESP 22, PULSE 74, RIGHT) Cuff size: wrist Heart Rate: 73 O2 Saturation: 97 (PAPER MASK) Height: 5 ft 7 in Weight: 254 lb (CLOTHES) Body Mass Index: 39.7 BMI Classification: Obese Mood/affect: normal Nostrils: patent to airflow Turbinates: normal Septum: midline Mouth and throat: narrow oropharynx (She is edentulous.) Soft palate: long Hard palate: normal Uvula: normal Uvula visualization: 25% Mallampati Class III Tongue: normal in size Tonsils: small Chin and jaw: normal size and position Neck: normal w/o lymphadenopathy or thyromegaly Heart: regular rate and rhythm Lungs: clear bilaterally Extremities: 2+ edema Impression and Plan IMPRESSION: 1. Obstructive Sleep Apnea-Hypopnea Syndrome, as evident by history of loud snore, observed apneas, frequent awakenings during the night, unrefreshed sleep, cognitive impairment, and daytime hypersomnolence. Narrow oropharynx and obesity are common predisposing factors for obstructive sleep apnea-hypopnea syndrome. Untreated obstructive sleep apnea can also cause hypertension. I recommend proceeding to polysomnography to confirm the diagnosis and to assess severity. If she has significant sleep disordered breathing, a manual CPAP titration study will also be performed to find the optimal treatment pressure. I informed the patient of what the sleep studies i nvolve and after some discussion, she agreed to proceed. Plan: 1. Schedule an in-laboratory polysomnography. 2. Avoid driving especially when sleepy. 3. Avoid alcohol, sedative and muscle relaxant around bedtime. 4. Attempt to lose weight. 5. Return for follow up after the sleep study. Counseling Topics: Weight control Follow up with Sleep Care in: 1-2 months Visit Type: In Office Other Participants: Spouse/Significant Other Time Spent with Patient (minutes): 15 Provider Statement: I spent 100% of the Face to Face Visit with the patient with greater than 50% spent counseling the patient and coordination of care.
[2022-04-29 10:27] VITALS: BP 153/84
== END 2022-04-29 09:39 | disposition home or self-care (01) ==
LOC: SC 09:38
PROVIDERS: ATTEND Nurse Practitioner Family
DX: G47.8 Other sleep disorders (principal); R06.83 Snoring; R06.81 Apnea, not elsewhere classified; I10 Essential (primary) hypertension; R41.89 Other symptoms and signs involving cognitive functions and awareness; E66.9 Obesity, unspecified; Z68.29 Body mass index [BMI] 29.0-29.9, adult; Z87.891 Personal history of nicotine dependence
CPT/HCPCS: 99202; G0463; 99212

== ENCOUNTER 2022-04-30 07:43 | Outpatient (CLI) | payer MEDICARE, OTHER ==
--- NOTE | 2022-04-30 11:19 | Ultrasound Report ---
PROCEDURE: Duplex Lwr Ext Arterial Bilat INDICATIONS: PVD TECHNIQUE: Color and pulse Doppler interrogation was performed of both lower extremity arterial systems, with im age documentation. COMPARISON: None FINDINGS: Right lower extremity: Common femoral artery: 167 cm/sec, with biphasic flow. Deep femoral artery: 123 cm/sec, with biphasic, turbulent flow. Proximal superficial femoral artery: 130 cm/sec, with monophasic flow. Mid superficial femoral artery: 162.9 cm/sec, with monophasic flow. Distal superficial femoral artery: 154.9 cm/sec, with monophasic flow. Popliteal artery: 98.5 cm/sec, with biphasic flow. Posterior tibial artery: 129.8 cm/sec, with monophasic flow. Anterior tibial artery/dorsalis pedis: 90.6/113.3 cm/sec, with biphasic/monophasic flow. Teixeira-scale imaging description: Diffuse plaque. Extensive monophasic waveform suggest diffuse signif icant disease. No clearly defined focal stenosis identified. Left lower extremity: Common femoral artery: 194.8 cm/sec, with biphasic flow. Deep femoral artery: 159.5 cm/sec, with biphasic, turbulent flow. Proximal superficial femoral artery: 131.7 cm/sec, with biphasic flow. Mid superficial femoral artery: 154.7 cm/sec, with monophasic flow. Distal superficial femoral artery: 150.3 cm/sec, with monophasic flow. Popliteal artery: 129.3 cm/sec, with monophasic flow. Posterior tibial artery: 70.2 cm/sec, with monophasic flow. Anterior tibial artery/dorsalis pedis: 83.8/69.8 cm/sec, with monophasic flow. Teixeira-scale imaging description: Although there is no focal hemodynamically significant stenosis iden tified, extensive monophasic waveforms are consistent with significant arterial disease. Incidental note made of greater saphenous vein reflux in the thigh with thigh varicosities. IMPRESSION: 1. Although there is no focal hemodynamically significant stenosis identified, there are extensive mo nophasic waveforms bilaterally consistent with significant peripheral arterial stenotic disease. 2. Incidental note made of left greater saphenous vein reflux with varicosities. Comment: MRA of the aorta and runoff vessels versus CTA of the aorta and runoff vessels may be helpfu l in this patient. Reviewed by: Rajan Lee MD on 04/30/2022 11:17 AM PDT Approved by: Rajan Lee MD on 04/30/2022 11:17 AM PDT Station ID: [id number]
== END 2022-04-30 07:44 | disposition home or self-care (01) ==
LOC: DI 07:43
PROVIDERS: ATTEND Nurse Practitioner
DX: L03.90 Cellulitis, unspecified (principal); L97.921 Non-pressure chronic ulcer of unspecified part of left lower leg limited to breakdown of skin; I73.9 Peripheral vascular disease, unspecified
CPT/HCPCS: 93925

== ENCOUNTER 2022-09-17 09:43 | Outpatient (CLI) | payer MEDICARE, OTHER ==
[2022-09-17 10:20] LABS: ALBUMIN 3.9 g/dL (3.2-5.5); CALCIUM 9.6 mg/dL (8.5-10.3); CREATININE 1.3 mg/dL (0.4-1.0); POTASSIUM 4.4 mmol/L (3.5-5.0)
[2022-09-17 11:15] LABS: TOTAL PROTEIN,URINE TIMED < 6 mg/dL
== END 2022-09-17 09:44 | disposition home or self-care (01) ==
LOC: LAB 09:43
PROVIDERS: ATTEND Internal Medicine Nephrology
DX: N18.31 Chronic kidney disease, stage 3a (principal)
CPT/HCPCS: 36415; 80069; 82306; 82570; 83970; 84156

== ENCOUNTER 2022-09-23 09:38 | Outpatient (CLI) | payer MEDICARE, OTHER ==
[~2022-09-23 09:38] MED LIST changes: -GADOBUTROL 10 MMOL/10 ML VIAL ONE; +GADOBUTROL 15 MMOL/15 ML VIAL ONE
--- NOTE | 2022-09-23 15:11 | MRI Report ---
PROCEDURE: BRAIN W/WO INDICATIONS: METASTATIC ADENOCARCINOMA CONTRAST: 11.5ml gadavist TECHNIQUE: Noncontrast axial T1 spin echo, axial T2 fast spin echo, sagittal and axial FLAIR, coronal T2 fast sp in echo, axial gradient echo, axial diffusion and ADC through the brain. After the administration of contrast, axial and coronal T1 spin echo with fat saturation through the brain. COMPARISON: 02/19/2022, 11/06/2021, 08/23/2021, 11/22/2020 FINDINGS: Image quality: Excellent. CSF spaces: Basal cisterns are patent. No extra-axial fluid collections. Ventricles are normal in size and shape. Brain: Focal volume loss can be seen involving the right occipital lobe, with surrounding encephalom alacia and edema. There is a mild degree of hemosiderin deposition seen within the resection bed. The postcontrast images, no masslike enhancement can be seen, although there are several foci of moderat e enhancement seen along the margins of the resection cavity. The right frontal lobe developmental venous anomaly is incidentally noted, as on series 6 image 124. No midline shift. No intracranial bleeds. There is cerebral volume loss for age. There is perivent ricular white matter chronic small vessel ischemic change. The brainstem appears normal. Diffusion- weighted images demonstrate no acute ischemic insults. No chronic ischemic insults. Normal intravas cular flow voids are present. Skull and face: Right posterior craniotomy changes are seen. Calvarial marrow is normal in signal. Orbits appear normal. Sinuses: Sinuses and mastoids appear clear. IMPRESSION: Interval resection change of the right posterior cerebral mass. No definite masslike components are seen, although there are several foci of enhancement seen along t he margins of resection cavity. The degree of enhancement is most likely within postoperative limits. However, please consider a short-term follow-up brain MRI, without and with IV contrast. Right frontal lobe developmental venous anomaly incidentally noted. Reviewed by: Blair Pleitez MD on 09/23/2022 2:10 PM [place] Approved by: Blair Pleitez MD on 09/23/2022 2:10 PM [facility] Station ID: [id number]
[2022-09-23] MEDS ORDERED: GADOBUTROL 15 MMOL/15 ML VIAL IVP ONE (18:42)
== END 2022-09-23 09:39 | disposition home or self-care (01) ==
LOC: DI 09:38
PROVIDERS: ATTEND Neurological Surgery
DX: C79.31 Secondary malignant neoplasm of brain (principal); C80.1 Malignant (primary) neoplasm, unspecified; Z98.890 Other specified postprocedural states
CPT/HCPCS: 70553; A9585

== ENCOUNTER 2023-01-15 15:20 | Emergency (ER) | payer MEDICARE, OTHER ==
[2023-01-15 15:33] VITALS: BP 163/74
[2023-01-15] MEDS ORDERED: HYDROcod/ACETAM 5/325 MG TABLET PO STA (16:39)
--- NOTE | 2023-01-15 16:41 | ED Physician Documentation ---
PD HPI LOWER EXT INJURY - Stated complaint Stated Complaint: LT FOOT PAIN - Chief complaint Chief Complaint: Trauma Ext - History obtained from History obtained from: Patient - History of Present Illness PD HPI LOW EXT INJURY LOCATION: Left Timing - onset: Yesterday Timing - details: Abrupt onset Pain level max: 6 Pain level now: 5 - Additional information Additional information: Patient is a 67-year-old female who presents to the emergency department complai nt of left foot pain. She states that she stepped down on her foot and felt a crack. Now has pain to the lateral aspect of the foot. Worse with movement, better with rest. Review of Systems Constitutional: denies: Fever Neurologic: denies: Focal weakness, Numbness PD PAST MEDICAL HISTORY - Past Medical History Cardiovascular: Hypertension, High cholesterol Respiratory: Asthma - Past Surgical History Past Surgical History: No - Present Medications Home Medications: Ambulatory Orders Medication Instructions Recorded Confirmed Atenolol 50 mg PO DAILY 12/22/13 10/09/22 Simvastatin [Zocor] 10 mg PO DAILY 12/22/13 10/09/22 Aspirin [Aspir 81] 81 mg PO DAILY 05/11/14 10/09/22 Potassium Chloride [K-Dur] 30 meq PO DAILY 10/11/15 10/09/22 Rivaroxaban [Xarelto] 20 mg PO DAILY #30 tablet 08/02/21 10/09/22 Zolpidem [Ambien] 5 mg PO HS PRN #60 tablet 03/20/22 10/09/22 Acetaminophen [Acetaminophen Extra 1,000 mg PO PRN PRN 05/15/22 10/09/22 Strength] Budesonide/Formoterol Fumarate 2 puffs INH BID 05/15/22 10/09/22 [Symbicort 160-4.5 Mcg Inhaler] amLODIPine [Norvasc] 10 mg PO DAILY 05/15/22 10/09/22 Ergocalciferol (Vitamin D2) 1,250 mcg PO UD 10/09/22 10/09/22 [Drisdol] Furosemide [Lasix] 45 mg PO DAILY 10/09/22 10/09/22 HYDROcod/ACETAM 5/325 [Talcott 5/325] 1 - 2 ea PO Q6H PRN #14 tablet 01/15/23 - Allergies Allergies/Adverse Reactions: Allergies Allergy/AdvReac Type Severity Reaction Status Date / Time latex Allergy Itching Verified 01/15/23 15:33 - Social History Does the pt smoke?: No Smoking Status: Never smoker Does the pt drink ETOH?: No Does the pt have substance abuse?: No - POLST Patient has POLST: No PD ED PE NORMAL - Vitals Vital signs reviewed: Yes - General General: Alert and oriented X 3, No acute distress - Derm Derm: Warm and dry - Extremities Extremities: Other (L foot - Tender to palpation over the base of the fifth metatarsal. No tenderness over the ankle, tibia or fibula. Otherwise normal ex am of the foot. Neurovascular intact. No swelling or ecchymosis) - Neuro Neuro: Alert and oriented X 3 Results - Vitals Vitals: Vital Signs - 24 hr 01/15/23 15:31 Temperature 36.9 C Heart Rate 73 Respiratory 18 Rate Blood Pressure 163/74 H O2 Saturation 97 Oxygen O2 Source Room air - Rads (name of study) Left foot x-ray Relevant Findings:: Final report received, See rad report PD Medical Decision Making - ED course Complexity details: reviewed results, re-evaluated patient, considered differential, d/w patient ED course: 67-year-old female presents the emergency department with left foot pain after she states she stepped on her foot and felt a crack. She has a nondisplaced fifth metatarsal shaft fracture. Discussed the case with orthopedics, Dr. Castillo, will place in a walking boot. We will have her follow-up closely with orthopedics for further care. Patient did not feel that she could keep herself nonweightbearing or use crutches to help with this, therefore a walking boot was used. Patient counseled regarding signs and symptoms for which I believe and urgent re-evaluation would be necessary. Patient with good understanding of and agreement to plan and is comfortable going home at this time This document was made in part using voice recognition software. While efforts are made to proofread this document, sound alike and grammatical errors may occur. Departure - Departure Disposition: 01 Home, Self Care Clinical Impression: Fracture of 5th metatarsal Qualifiers: Encounter type: initial encounter Fracture type: closed Fracture alignment: nondisplaced Laterality: left Qualified Code(s): S92.355A - Nondisplaced fracture of fifth metatarsal bone, left foot, initial encounter for closed fracture Condition: Good Instructions: ED Fx Foot Follow-Up: MED VYAS MD [Primary Care Provider] - [facility] [Provider Group] - Within 1 week Prescriptions: HYDROcod/ACETAM 5/325 [Talcott 5/325] 1 - 2 ea PO Q6H PRN #14 tablet PRN Reason: Pain Comments: You have a fracture at the base of your fifth metatarsal. You are placed into a walking boot today. Please follow-up with orthopedics for further care. Please return if you worsen. Your prescription was sent to [facility] in [place] I am prescribing a short course of narcotic pain medication for you. These are potentially dangerous and addictive medications that should be used carefully. These medications may constipate you. Take an mwgv-wjg-vktqpar stool softener (docusate) twice daily with plenty of water while taking these medications. If you go 24 hours without a bowel movement, take feec-zrv-bufrcjj miralax, per package instructions. Do not drink or drive while taking these medications. If you received narcotic or sedating medications while in the emergency department, do not drive for 24 hours. Store this medication in a safe, secure place and out of reach of children. It is a violation of federal law to give or sell this medication to another person or to use in a manner other than prescribed. The ED will not refill narcotic prescriptions, including prescriptions lost or stolen. To dispose of unwanted medications: 1. [facility] [address] in [place] has a medication drop box. They accept prescription medications (in pill form) Friday through Friday 9:00 a.m. to 5:00 p.m. 2. The [facility] [employer] [facility] accepts prescription medications (in pill form only) for disposal year round. Call for more information. 3. Contact the [facility] for the next [facility] sponsored prescription drug collection event. , [phone], or [phone]; Discharge Date/Time: 01/15/23 17:12
--- NOTE | 2023-01-15 16:42 | XRAY Report ---
PROCEDURE: Foot 3 View LT INDICATIONS: Trauma TECHNIQUE: 3 views of the foot were acquired. COMPARISON: None. FINDINGS: Bones: There is a transverse fracture in the proximal fifth metatarsal shaft without displacement or angulation. No suspicious bony lesions. 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 Osteopenia. Soft tissues: No tibiotalar joint effusion. Achilles tendon appears normal. Diffuse soft tissue sw elling. IMPRESSION: Nondisplaced fifth metatarsal shaft fracture. Reviewed by: Callum Porter MD on 01/15/2023 3:41 PM AKDT Approved by: Callum Porter MD on 01/15/2023 3:41 PM AKDT Station ID: [id number]
== END 2023-01-15 17:12 | disposition home or self-care (01) ==
LOC: ED 15:20
DX: S92.355A Nondisplaced fracture of fifth metatarsal bone, left foot, initial encounter for closed fracture (principal); X58.XXXA Exposure to other specified factors, initial encounter
CPT/HCPCS: 73630; 99283; 99284; A9270

== ENCOUNTER 2023-01-20 08:45 | Outpatient (CLI) | payer MEDICARE, OTHER ==
--- NOTE | 2023-01-20 10:34 | XRAY Report ---
PROCEDURE: Foot 3 View LT INDICATIONS: LEFT 5TH MT FRACTURE TECHNIQUE: 3 views of the foot were acquired. COMPARISON: 01/15/2023 FINDINGS: Bones: No significant interval healing of the fifth metatarsal shaft fracture. Soft tissues: No tibiotalar joint effusion. Achilles tendon appears normal. IMPRESSION: No significant interval healing. Reviewed by: Herson Quinteros on 01/20/2023 10:33 AM PDT Approved by: Herson Quinteros on 01/20/2023 10:33 AM PDT Station ID: [id number]
== END 2023-01-20 23:59 | disposition home or self-care (01) ==
LOC: DI.WOS 08:45
PROVIDERS: ATTEND Orthopaedic Surgery
DX: S62.327A Displaced fracture of shaft of fifth metacarpal bone, left hand, initial encounter for closed fracture (principal)

== ENCOUNTER 2023-02-17 14:21 | Outpatient (CLI) | payer MEDICARE, OTHER ==
--- NOTE | 2023-02-17 14:29 | XRAY Report ---
PROCEDURE: Foot 3 View LT INDICATIONS: LEFT FOOT FRACTURE TECHNIQUE: 3 views of the foot were acquired. COMPARISON: 6 right foot 01/20/2023 FINDINGS: Bones: Proximal fifth metatarsal shaft fracture with minimal interval bridging osteophytes.. No leyda picious bony lesions. Stable alignment. Soft tissues: No suspicious soft tissue calcifications or masses. IMPRESSION: Fifth metatarsal shaft fracture with very minimal interval bridging osteophyte. Reviewed by: Sulma Arce MD on 02/17/2023 2:28 PM PDT Approved by: Sulma Arce MD on 02/17/2023 2:28 PM PDT Station ID: [id number]
== END 2023-02-17 14:22 | disposition home or self-care (01) ==
LOC: DI.WOS 14:21
PROVIDERS: ATTEND Orthopaedic Surgery
DX: S92.355D Nondisplaced fracture of fifth metatarsal bone, left foot, subsequent encounter for fracture with routine healing (principal)

== ENCOUNTER 2023-03-24 12:02 | Outpatient (CLI) | payer MEDICARE, OTHER ==
[2023-03-24 12:32] LABS: CALCIUM 9.4 mg/dL (8.5-10.3); CREATININE 1.2 mg/dL (0.4-1.0); POTASSIUM 4.1 mmol/L (3.5-5.0)
--- NOTE | 2023-03-24 16:07 | MRI Report ---
PROCEDURE: BRAIN W/WO INDICATIONS: NECROSIS OF BRAIN DUE TO RADIATION THERAPY CONTRAST: gadavist 11.1ml TECHNIQUE: Noncontrast axial T1 spin echo, axial T2 fast spin echo, sagittal and axial FLAIR, coronal T2 fast sp in echo, axial gradient echo, axial diffusion and ADC through the brain. After the administration of contrast, axial and coronal T1 spin echo with fat saturation through the brain. COMPARISON: MRI brain 09/23/2022, 02/18/2022. FINDINGS: Image quality: Excellent. CSF spaces: Basal cisterns are patent. No extra-axial fluid collections. Ventricles are normal in size and shape. Brain: Postsurgical changes reflecting resection of posterior right occipital mass. Postoperative ch anges as well as residual hyperintense T2/FLAIR signal are unchanged. Stable appearance of linear are as of enhancement predominantly along the anterior and medial posterior aspect of the resection cavit y, unchanged. No new areas of enhancement are identified. No midline shift. No intracranial bleeds. Linear enhancement is noted in the inferior right frontal lobe most suggestive of deep venous anomaly and unchanged. No abnormal intracranial enhancement. The re is cerebral volume loss for age. There is periventricular white matter chronic small vessel ische juan change. The brainstem appears normal. Diffusion-weighted images demonstrate no acute ischemic i nsults. No chronic ischemic insults. Normal intravascular flow voids are present. Skull and face: Calvarial marrow is normal in signal. Orbits appear normal. Sinuses: Sinuses and mastoids appear clear. IMPRESSION: Stable appearance of right occipital resection cavity without evidence of recurrent disease. No new areas of abnormal enhancement are identified within the intracranial contents. Reviewed by: Sulma Arce MD on 03/24/2023 4:05 PM PDT Approved by: Sulma Arce MD on 03/24/2023 4:05 PM PDT Station ID: [id number]
[2023-03-24] MEDS ORDERED: GADOBUTROL 15 MMOL/15 ML VIAL IVP ONE (19:04)
== END 2023-03-24 12:03 | disposition home or self-care (01) ==
LOC: LAB 12:02
PROVIDERS: ATTEND Neurological Surgery
DX: I67.89 Other cerebrovascular disease (principal); Y84.2 Radiological procedure and radiotherapy as the cause of abnormal reaction of the patient, or of later complication, without mention of misadventure at the time of the procedure; Z98.890 Other specified postprocedural states
CPT/HCPCS: 36415; 70553; 80048; A9585

== ENCOUNTER 2023-03-27 08:00 | Outpatient (CLI) | payer MEDICARE, OTHER ==
--- NOTE | 2023-03-27 15:00 | XRAY Report ---
PROCEDURE: Foot 3 View LT INDICATIONS: LEFT 5TH MT FRACTURE TECHNIQUE: 3 views of the foot were acquired. COMPARISON: Left foot radiographs 02/17/2023 FINDINGS: Bones: The bones appear demineralized. Similar alignment of the previously demonstrated fracture of the proximal aspect of the fifth metatarsal. Bony callus is present about the fracture plane as befor e. Fracture plane remains visible. Polyarticular degenerative changes of the foot. Soft tissues: No suspicious soft tissue calcifications IMPRESSION: Similar alignment of the previously demonstrated fifth metatarsal fracture. Reviewed by: Boni Bailon MD on 03/27/2023 2:59 PM PDT Approved by: Boni Bailon MD on 03/27/2023 2:59 PM PDT Station ID: [id number]
== END 2023-03-27 23:59 | disposition home or self-care (01) ==
LOC: DI.WOS 08:00
PROVIDERS: ATTEND Orthopaedic Surgery
DX: S92.355D Nondisplaced fracture of fifth metatarsal bone, left foot, subsequent encounter for fracture with routine healing (principal)